=== PATIENT | female | born 1990 | race Caucasian/White ===

== ENCOUNTER 2017-05-22 08:11 | Day surgery (SDC) | payer BC ==
[~2017-05-22 08:11] MED LIST: Lactated Ringers 1,000 ML IV SCH; Lidocaine 1%/Sod Bicarbonate in NS 8.4% 1 ML Syringe IV PRN; Sodium Chloride 0.9% 10 ML Syringe FLUSH PRN
[2017-05-22] MEDS ORDERED: Propofol 200 MG/20 ML SDV ONE (08:43)
[2017-05-22] MEDS ORDERED: fentaNYL 100 MCG/2 ML SDV ONE (08:44)
[2017-05-22] MEDS ORDERED: Midazolam 1 MG/ML 2 ML SDV ONE (08:44)
[2017-05-22] MEDS ORDERED: Ketamine 500 mg/10 ML MDV ONE (08:44)
[2017-05-22] MEDS ORDERED: Dexamethasone 4 MG/ML SDV ONE (08:47)
[2017-05-22] MEDS ORDERED: Lidocaine 1% 2 ML ONE (08:47)
[2017-05-22] MEDS ORDERED: Ondansetron 4 MG/2 ML SDV ONE (08:47)
--- NOTE | 2017-05-22 08:56 | PCM.PREANE ---
Preanesthetic Assessment - Procedure Proposed Procedure: Hysteroscopy with novasure - Anesthesia/Transfusion/Family Hx Anesthesia History: Prior Anesthesia Without Reaction Family History of Anesthesia Reaction: No Transfusion History: No Prior Transfusion(s) - Review of Systems General: No Symptoms Pulmonary: Other (asthma- doesnt routinely use inhaler ) Cardiovascular: No Symptoms Gastrointestinal: No Symptoms Neurological: No Symptoms Other: Reports: None - Physical Assessment NPO Status Date: 05/21/17 NPO Status Time: 19:00 Pulse: 76 O2 Sat by Pulse Oximetry: 96 Respiratory Rate: 20 Blood Pressure: 126/75 Temperature: 36.9 C Height: 1.73 m Weight: 112 kg ASA Class: 2 Mental Status: Alert & Oriented x3 Airway Class: Mallampati = 2 Dentition: Reports: Normal Dentition ROM/Head Extension: Full Lungs: Clear to Auscultation, Normal Respiratory Effort Cardiovascular: Regular Rate, Regular Rhythm - Lab Values: Laboratory Last Values WBC 9.49 K/mm3 (3.98-10.04) 05/22/17 08:38 RBC 4.56 M/mm3 (3.98-5.22) 05/22/17 08:38 Hgb 13.9 gm/L (11.2-15.7) 05/22/17 08:38 Hct 40.6 % (34.1-44.9) 05/22/17 08:38 MCV 89.0 fl (79.4-94.8) 05/22/17 08:38 MCH 30.5 pg (25.6-32.2) 05/22/17 08:38 MCHC 34.2 g/dl (32.2-35.5) 05/22/17 08:38 RDW Std Deviation 40.9 fL (36.4-46.3) 05/22/17 08:38 Plt Count 329 K/mm3 (182-369) 05/22/17 08:38 MPV 9.5 fl (9.4-12.3) 05/22/17 08:38 Neut % (Auto) 60.2 % (34.0-71.1) 05/22/17 08:38 Lymph % (Auto) 27.4 % (19.3-51.7) 05/22/17 08:38 Dyer % (Auto) 8.7 % (4.7-12.5) 05/22/17 08:38 Eos % (Auto) 3.0 (0.7-5.8) 05/22/17 08:38 Baso % (Auto) 0.5 % (0.1-1.2) 05/22/17 08:38 Neut # (Auto) 5.71 K/mm3 (1.56-6.13) 05/22/17 08:38 Lymph # (Auto) 2.60 K/mm3 (1.18-3.74) 05/22/17 08:38 Dyer # (Auto) 0.83 K/mm3 (0.24-0.36) H 05/22/17 08:38 Eos # (Auto) 0.28 K/mm3 (0.04-0.36) 05/22/17 08:38 Baso # (Auto) 0.05 K/mm3 (0.01-0.08) 05/22/17 08:38 Urine Color Yellow (Yellow) 05/22/17 08:17 Urine Appearance Clear (Clear) 05/22/17 08:17 Urine pH 6.0 (5.0-8.0) 05/22/17 08:17 Ur Specific Dunbar > or = 1.030 (1.005-1.030) 05/22/17 08:17 Urine Protein Negative (Negative) 05/22/17 08:17 Urine Glucose (UA) Negative (Negative) 05/22/17 08:17 Urine Ketones Negative (Negative) 05/22/17 08:17 Urine Occult Blood Negative (Negative) 05/22/17 08:17 Urine Nitrite Negative (Negative) 05/22/17 08:17 Urine Bilirubin Negative (Negative) 05/22/17 08:17 Urine Urobilinogen 0.2 (0.2-1.0) 05/22/17 08:17 Ur Leukocyte Esterase 1+ (Negative) H 05/22/17 08:17 Urine HCG, Qual Negative (NEGATIVE) 05/22/17 08:17 - Allergies Allergies/Adverse Reactions: Allergies Allergy/AdvReac Type Severity Reaction Status Date / Time No Known Allergies Allergy Verified 05/21/17 16:48 - Blood Blood Available: No Product(s) Available: None - Anesthesia Plan Pre-Op Medication Ordered: None - Acknowledgements Anesthesia Type Planned: General Anesthesia, MAC Pt an Appropriate Candidate for the Planned Anesthesia: Yes Alternatives and Risks of Anesthesia Discussed w Pt/Guardian: Yes Pt/Guardian Understands and Agrees with Anesthesia Plan: Yes PreAnesthesia Questionnaire - Past Health History Medical/Surgical History: Denies Medical/Surgical History Cardiovascular History: Reports: None Respiratory History: Reports: Asthma Gastrointestinal History: Reports: None 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: , Spontaneous , Other (See Below) Other OB/BYN History: ASCUS, dysmenorrhea, menorrhagia Musculoskeletal History: Reports: None Neurological History: Reports: Other (See Below) Other Neuro History: dizziness Psychiatric History: Reports: Mood Swings Endocrine/Metabolic History: Reports: None Hematologic History: Reports: None Immunologic History: Reports: None Oncologic (Cancer) History: Reports: None Dermatologic History: Reports: Other (See Below) Other Dermatologic History: warts to foot, hair loss - Past Surgical History Head Surgeries/Procedures: Reports: None HEENT Surgical History: Reports: Adenoidectomy, Myringotomy w Tube(s), Oral Surgery, Tonsillectomy, Other (See Below) Other HEENT Surgeries/Procedures: Ear tube placement x 2 Cardiovascular Surgical History: Reports: None Respiratory Surgical History: Reports: None GI Surgical History: Reports: None Female Surgical History: Reports: Tubal Ligation Male Surgical History: Reports: None Endocrine Surgical History: Reports: None Neurological Surgical History: Reports: None Musculoskeletal Surgical History: Reports: None Oncologic Surgical History: Reports: None - SUBSTANCE USE Smoking Status *Q: Current Every Day Smoker (0.5ppd for 8 years) Tobacco Use Within Last Twelve Months: Cigarettes Second Hand Smoke Exposure: No Recreational Drug Use History: No - HOME MEDS Home Medications: Home Meds Albuterol [Proair HFA] 1 - 2 puff INH Q6H PRN 05/21/17 [History] - CURRENT (IN HOUSE) MEDS Current Meds: Current Medications Lactated Ringer's (Ringers, Lactated) 1,000 mls @ 125 mls/hr IV ASDIRECTED ANTONIO Lidocaine/Sodium Bicarbonate (Buffered Lidocaine 1% In Ns 8.4%) 0.25 ml IV ONETIME PRN PRN Reason: Prior to IV Start Sodium Chloride (Saline Flush) 10 ml FLUSH ASDIRECTED PRN PRN Reason: Keep Vein Open Discontinued Medications Dexamethasone (Dexamethasone) Confirm Administered Dose 4 mg .ROUTE .STK-MED ONE Stop: 05/22/17 08:48 Fentanyl (Sublimaze) Confirm Administered Dose 100 mcg .ROUTE .STK-MED ONE Stop: 05/22/17 08:45 Lidocaine HCl (Xylocaine-Mpf 1%) Confirm Administered Dose 2 mls @ as directed .ROUTE .STK-MED ONE Stop: 05/22/17 08:48 Ketamine HCl (Ketalar) Confirm Administered Dose 500 mg .ROUTE .STK-MED ONE Stop: 05/22/17 08:45 Midazolam HCl (Versed 1 Mg/Ml) Confirm Administered Dose 2 mg .ROUTE .STK-MED ONE Stop: 05/22/17 08:45 Ondansetron HCl (Zofran) Confirm Administered Dose 4 mg .ROUTE .STK-MED ONE Stop: 05/22/17 08:48 Propofol (Diprivan 20 Ml) Confirm Administered Dose 400 mg .ROUTE .STK-MED ONE Stop: 05/22/17 08:44
[2017-05-22] MEDS ORDERED: ceFAZolin 1 GM Vial ONE (09:55)
[2017-05-22] MEDS ORDERED: Ondansetron 4 MG/2 ML SDV IVPUSH PRN (10:10)
[2017-05-22] MEDS ORDERED: Acetaminophen/oxyCODONE 325-5 MG Tab PO PRN (10:10)
[2017-05-22] MEDS ORDERED: Ketorolac 30 MG/ML SDV ONE (10:12)
--- NOTE | 2017-05-22 10:14 | PCM48HPAN ---
Post Anesthesia Note - EVALUATION WITHIN 48HRS OF ANESTHETIC Vital Signs in Normal Range: Yes Patient Participated in Evaluation: Yes Respiratory Function Stable: Yes Airway Patent: Yes Cardiovascular Function Stable: Yes Hydration Status Stable: Yes Pain Control Satisfactory: Yes Nausea and Vomiting Control Satisfactory: Yes Mental Status Recovered: Yes
--- NOTE | 2017-05-22 10:18 | PCM.OPNOTE ---
- General Post-Op/Procedure Note Date of Surgery/Procedure: 05/22/17 Operative Procedure(s): Hysteroscopy, NovaSure endometrial ablation Findings: Uterus is found to have a small septum. Tubal ostia were visualized. No endometrial abnormalities otherwise were noted. Manual exam showed uterus to be upper limits normal size. No adnexal abnormalities were noted. Uterus descends to approximately a grade 2 position with traction on cervix. Pre Op Diagnosis: 1. Menorrhagia. 2. Dysmenorrhea Post-Op Diagnosis: Same Anesthesia Technique: General ET Tube Primary Surgeon: Alok Coemr Client Relationship Manager: Ian Gandhi Reason Client Relationship Manager Was Necessary: Retraction. Assistance, patient's safety, quality of care Role of Client Relationship Manager: Retraction Fluid Replacement, Intraop: 700 EBL in mLs: 5 Complications: None Condition: Good Free Text/Narrative:: Surgery duration: 15 minutes Procedure: Patient was instructed as to procedure, its risks, benefits, limitations and follow-up and had signed a consent for surgery. The patient is taken the operative placed in a supine position on the operating table. She received 2 g of Ancef preoperatively for infection prophylaxis and had sequential compression stockings in place for DVT prophylaxis. MAC was used for anesthesia. She is placed in a dorsal lithotomy position and prepped and draped in usual fashion. An exam under anesthesia was performed. Findings as described above. A weighted speculum was placed in the vagina. Cervix is visualized. It was grasped anteriorly with a single-tooth tenaculum. Uterus was then sounded to a depth of 8 cm. The cervix was dilated to allow passage of a 5 mm 30 rigid hysteroscope. This was placed without problem and normal saline was used as a distending medium. The endometrial cavity was visualized. Findings as described above. Patient's specific was noted to have a small uterine septum. Tubal ostia were visualized. Hysteroscope was then placed back into the endometrial cavity. Blood was flushed out and the findings were consistent relatively normal-appearing endometrial cavity with the exception of the uterine septum.. At this point the scope was removed. The vagina was cleared of old blood. NovaSure endometrial ablation was then performed. The cervix was dilated to allow placement of the NovaSure endometrial apparatus. Uterus had sounded to 8 cm and a uterine endometrial cavity was 6.5 cm with cervix being a length of 2.5 cm.. The NovaSure device was set to 6.5 centimeters as this was maximal setting. The image cavities foundry 2.5 cm in width. Uterine cavity integrity check was then performed and was successful. The endometrial cavity was then ablated. Energy was 89. The ablation took approximately 63 seconds The array was collapsed and the apparatus was removed. Hysteroscope was then placed back into the endometrial cavity. Blood was flushed out and the findings were consistent with a cauterized endometrial cavity. At this point the scope was removed. The vagina was cleared of old blood , the cervix was released and the weighted speculum was removed. Patient was returned to supine position and awakened from general anesthesia. She tolerated the procedure well and operating room in good condition.
[2017-05-22 11:22] VITALS: BP 131/81
== END 2017-05-22 11:20 | disposition home or self-care (01) ==
LOC: JD.SDS 08:11
PROVIDERS: ATTEND Obstetrics & Gynecology
DX: N92.0 Excessive and frequent menstruation with regular cycle (principal); N94.6 Dysmenorrhea, unspecified; J45.909 Unspecified asthma, uncomplicated; F39 Unspecified mood [affective] disorder; B07.9 Viral wart, unspecified; F17.210 Nicotine dependence, cigarettes, uncomplicated; Z90.89 Acquired absence of other organs; Z90.49 Acquired absence of other specified parts of digestive tract; Z98.51 Tubal ligation status
CPT/HCPCS: 36415; 58563; 81003; 81025; 85025; A9270; J0690; J1100; J1885; J2250; J2405; J3010; J7120; 00952; J2001; J2704

== ENCOUNTER 2021-04-12 07:49 | Day surgery (SDC) | payer BC ==
--- NOTE | 2021-04-12 06:58 | PCM.PREANE ---
Preanesthetic Assessment - Procedure Proposed Procedure: Total vaginal hysterectomy - Anesthesia/Transfusion/Family Hx Anesthesia History: Prior Anesthesia Without Reaction Family History of Anesthesia Reaction: No Transfusion History: No Prior Transfusion(s) Intubation History: Unknown - Review of Systems General: No Symptoms Pulmonary: No Symptoms Cardiovascular: No Symptoms Gastrointestinal: No Symptoms Neurological: No Symptoms Other: Reports: None - Physical Assessment NPO Status Date: 04/11/21 NPO Status Time: 21:00 Vital Signs: 108/67 HR 76 97.7 RR 18 96% Height: 1.73 m Weight: 114 kg ASA Class: 2 Mental Status: Alert & Oriented x3 Airway Class: Mallampati = 2 Dentition: Reports: Caries Thyro-Mental Finger Breadths: 2 Mouth Opening Finger Breadths: 2 ROM/Head Extension: Full Lungs: Clear to Auscultation, Normal Respiratory Effort Cardiovascular: Regular Rate, Regular Rhythm, No Murmurs - Lab Values: Awaiting lab results - Allergies Allergies/Adverse Reactions: Allergies Allergy/AdvReac Type Severity Reaction Status Date / Time No Known Allergies Allergy Verified 04/11/21 14:24 - Acknowledgements Anesthesia Type Planned: General Anesthesia Pt an Appropriate Candidate for the Planned Anesthesia: Yes Alternatives and Risks of Anesthesia Discussed w Pt/Guardian: Yes Pt/Guardian Understands and Agrees with Anesthesia Plan: Yes PreAnesthesia Questionnaire - Past Health History Medical/Surgical History: Denies Medical/Surgical History HEENT History: Reports: None Cardiovascular History: Reports: None Respiratory History: Reports: Asthma Gastrointestinal History: Reports: Other (See Below) (occasional heart burn , patient stated she hasnt had for months. 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 HSV) - Past Surgical History Head Surgeries/Procedures: Reports: None HEENT Surgical History: Reports: Adenoidectomy, Myringotomy w Tube(s), Oral Surgery, Tonsillectomy, Other (See Below) Other HEENT Surgeries/Procedures: Ear tube placement x 2 Cardiovascular Surgical History: Reports: None Respiratory Surgical History: Reports: None GI Surgical History: Reports: None Female Surgical History: Reports: Tubal Ligation Male Surgical History: Reports: None Endocrine Surgical History: Reports: None Neurological Surgical History: Reports: None Musculoskeletal Surgical History: Reports: None Oncologic Surgical History: Reports: None - SUBSTANCE USE Tobacco Use Status *Q: Current Every Day Tobacco User Tobacco Use Within Last Twelve Months: Vaping Second Hand Smoke Exposure: No Days Per Week of Alcohol Use: 0 Number of Drinks Per Day: 0 Total Drinks Per Week: 0 Recreational Drug Use History: No - HOME MEDS Home Medications: Home Meds Albuterol [Proair HFA] 1 - 2 puff INH Q6H PRN 05/21/17 [History] Calcium Carbonate [Tums] 500 mg PO TID PRN 04/11/21 [History] - CURRENT (IN HOUSE) MEDS Current Meds: Current Medications Lactated Ringer's (Ringers, Lactated) 1,000 mls @ 125 mls/hr IV ASDIRECTED ANTONIO Stop: 04/12/21 23:00 Lidocaine/Sodium Bicarbonate (Lidocaine 1%/Sod Bicarbonate In Ns 8.4% 1 Ml Syringe) 0.25 ml IDERM ONETIME PRN PRN Reason: Prior to IV Start Stop: 04/12/21 23:00 Sodium Chloride (Sodium Chloride 0.9% 10 Ml Syringe) 10 ml FLUSH 0900,2100 [facility] Stop: 04/12/21 23:00
[~2021-04-12 07:49] MED LIST changes: +Albuterol 0.083% 2.5 MG/3 ML Neb Soln NEB ONE; +Dexamethasone 4 MG/ML 5 ML MDV ONE; +Ketorolac 30 MG/ML SDV ONE; +Lidocaine 1%/Sod Bicarbonate in NS 8.4% 1 ML Syringe IDERM PRN; -Lidocaine 1%/Sod Bicarbonate in NS 8.4% 1 ML Syringe IV PRN; +Midazolam 1 MG/ML 2 ML SDV ONE; +Ondansetron 4 MG/2 ML SDV ONE; +Propofol 200 MG/20 ML SDV ONE; +Rocuronium 50 MG/5 ML Vial ONE; -Sodium Chloride 0.9% 10 ML Syringe FLUSH PRN; +Sodium Chloride 0.9% 10 ML Syringe FLUSH SCH; +ceFAZolin 1 GM Vial ONE; +diphenhydrAMINE 50 MG/ML SDV ONE; +fentaNYL 250 MCG/5 ML SDV ONE
[2021-04-12] MEDS ORDERED: Dexmedetomidine 200 MCG/2 ML SDV ONE (08:17)
[2021-04-12] MEDS ORDERED: Sodium Chloride 0.9% 100 ML ONE (08:17)
[2021-04-12] MEDS: Sodium Chloride 0.9% 50 ML SDV ONE ×2 (08:22→08:36)
[2021-04-12] MEDS: Lidocaine 1% with EPINEPHrine 1:100,000 20 ML MDV ONE ×2 (08:22→08:35)
[2021-04-12] MEDS ORDERED: Propofol 200 MG/20 ML SDV ONE (08:28)
[2021-04-12] MEDS ORDERED: HYDROmorphone 0.5 MG/0.5 ML Syringe ONE ×2 (08:49→08:51)
[2021-04-12] MEDS ORDERED: Ondansetron 4 MG/2 ML SDV IVPUSH PRN ×2 (08:54→09:13)
[2021-04-12] MEDS ORDERED: Acetaminophen/oxyCODONE 325-5 MG Tab PO PRN (08:54)
--- NOTE | 2021-04-12 08:59 | PCM.OPNOTE ---
- General Post-Op/Procedure Note Date of Surgery/Procedure: 04/12/21 Operative Procedure(s): Total vaginal hysterectomy Findings: Bilateral fallopian tubes are surgically absent. Both ovaries were reproductive in appearance the right appeared somewhat polycystic in nature. Uterus is normal size. Pre Op Diagnosis: Dysmenorrhea Post-Op Diagnosis: Same Anesthesia Technique: General ET Tube Other Anesthesia Type: Lidocaine quarter percent with [id number] mL totallocal Primary Surgeon: Alok Comer Secondary Surgeon: Timbo Overton Anesthesia Provider: Gillian Henderson Reason Insurance Claims Adjuster Was Necessary: Retraction, assistance, patient safety, quality of care. Pathology: Uterus and cervix as 1 specimen. Fluid Replacement, Intraop: 1,000 EBL in mLs: 25 Complications: None Condition: Good Free Text/Narrative:: Surgery duration: 24 minutes. Procedure: The patient was placed in supine position on the operating table. General endotracheal anesthesia was accomplished. After positioning, and adequate prep and drape, the procedure was then performed. Sterile speculum was placed in the vagina and cervix was visualized. Cervix was injected with lidocaine quarter percent with epinephrine-20 mL used. A full circumference incision was made in the cervical epithelium. The bladder was pushed well back off cervix. Posterior cul-de-sac was then entered sharply without problems. Left uterosacral was crossclamped with a Enseal vessel closure system. The left uterosacral and then the right uterosacral ligament pedicles were developed using the Enseal system. The anterior cul-de-sac was then entered without problems and the uterine vasculature, cardinal ligament and broad ligament then developed using Enseal vessel closure system. The uterus was inverted at this time and upper broad ligament and cornual area were crossclamped with Anayeli clamps. Specimen was totally removed. Both these pedicles were then secured with a Anayeli stitch of #1 Vicryl. She been on both fallopian tubes had been surgically removed for contraception reasons previously. Vaginal cuff was sutured for hemostatic reasons with a running locked suture of 0 Monocryl from the 2 o'clock position to the 10 o'clock position posteriorly. Vaginal cuff was then closed from right to left side with a running locked suture of 0 Monocryl. Patient was returned to supine position and awakened from general endotracheal anesthesia. She tolerated the procedure and left the operating room in satisfactory condition.
[2021-04-12] MEDS ORDERED: fentaNYL 100 MCG/2 ML SDV IVPUSH PRN (09:13)
[2021-04-12] MEDS ORDERED: HYDROmorphone 0.5 MG/0.5 ML Syringe IVPUSH PRN (09:13)
--- NOTE | 2021-04-12 09:13 | PCM.POSTAN ---
POST ANESTHESIA ASSESSMENT - MENTAL STATUS Mental Status: Alert, Oriented, Other (drowsy) - RESPIRATORY Respiratory Status: Respiratory Rate WNL, Airway Patent, O2 Saturation Stable - CARDIOVASCULAR CV Status: Pulse Rate WNL, Blood Pressure Stable - GASTROINTESTINAL GI Status: No Symptoms - PAIN Pain Score: 0 - POST OP HYDRATION Hydration Status: Adequate & Stable
[2021-04-12] MEDS ORDERED: Lactated Ringers 1,000 ML ONE (11:24)
[2021-04-12] MEDS ORDERED: Ketorolac 30 MG/ML SDV IVPUSH SCH (13:30)
[2021-04-12 15:29] VITALS: PULSE 70
[2021-04-12 15:31] VITALS: BP 128/71
[2021-04-12] MEDS ORDERED: Ibuprofen 600 MG Tab PO PRN (19:30)
--- NOTE | 2021-04-13 10:09 | PCM48HPAN ---
Post Anesthesia Note - EVALUATION WITHIN 48HRS OF ANESTHETIC Vital Signs in Normal Range: Yes Patient Participated in Evaluation: Yes Respiratory Function Stable: Yes Airway Patent: Yes Cardiovascular Function Stable: Yes Hydration Status Stable: Yes Pain Control Satisfactory: Yes Nausea and Vomiting Control Satisfactory: Yes Mental Status Recovered: Yes Vital Signs: Last Vital Signs Temp 98.8 F 04/12/21 11:45 Pulse 70 04/12/21 11:45 Resp 16 04/12/21 11:45 BP 128/71 04/12/21 11:45 Pulse Ox 96 04/12/21 11:45
== END 2021-04-12 12:00 | disposition home or self-care (01) ==
LOC: JD.SDS 07:49
PROVIDERS: ATTEND Obstetrics & Gynecology
DX: N85.8 Other specified noninflammatory disorders of uterus (principal); N94.6 Dysmenorrhea, unspecified; J45.909 Unspecified asthma, uncomplicated; E66.01 Morbid (severe) obesity due to excess calories; F17.200 Nicotine dependence, unspecified, uncomplicated; Z79.899 Other long term (current) drug therapy; Z98.890 Other specified postprocedural states; Z68.38 Body mass index [BMI] 38.0-38.9, adult
CPT/HCPCS: 36415; 58260; 81003; 82565; 85025; 86850; 86900; 86901; A9270; J0690; J1100; J1170; J1200; J1885; J2250; J2405; J2704; J2710; J3010; J7120; 00944